=== PATIENT | female | born 1995 | race Caucasian/White ===

== ENCOUNTER 2024-11-20 05:30 | Day surgery (SDC) | payer BC, SELFPAY ==
--- NOTE | 2024-11-18 07:54 | ESHP_ITS ---
RE: BI MARTINEZ : 1995 DATE OF ADMISSION: 11/20/2024 HISTORY OF PRESENT ILLNESS: This is a 29-year-old 1, now para 0-0-1-0 with retained products of conception who presents for suction, dilatation and curettage. The patient denies any bleeding, fever, or pelvic pain. ALLERGIES: NO KNOWN DRUG ALLERGIES. MEDICATIONS: Folic acid 1 mg one p.o. daily. PAST MEDICAL HISTORY: Infertility, miscarriage. PAST SURGICAL HISTORY: Denies. SOCIAL HISTORY: She denies any alcohol, drug use, or smoking. She is . OBSTETRIC HISTORY: 10/30/2024, 7 weeks spontaneous AB. FAMILY HISTORY: Diabetes, hypertension, hypothyroidism. REVIEW OF SYSTEMS: She denies any chest pain, palpitations, cough, fever, shortness of breath, or lower extremity pain. PHYSICAL EXAMINATION: VITAL SIGNS: Blood pressure is 112/72 mmHg, heart rate 88, respirations 18, temperature 98.6. HEENT: Oropharynx and sclerae are clear. LUNGS: Clear to auscultation bilaterally. HEART: Regular rate and rhythm. ABDOMEN: Nontender. No scars noted. EXTREMITIES: Nontender. SKIN: No gross rashes or lesion. NEUROLOGIC: No focal deficit. ASSESSMENT: Retained products of conception. PLAN: Suction, dilatation and curettage. Informed consent was obtained. The patient was made aware of the risks, complications, alternatives, and benefits of the proposed procedure and she agrees. DT: 06:58:48 TT: 07:53:00 Ref: [id number] - TID: [id number] MTDD
[2024-11-18 13:57] VITALS: BMI 21.6
[2024-11-18 14:30] LABS: Basophils % (Auto) 1 % (0-2.5); Eosinophils # (Auto) 0.1 Thou/mm3 (0.0-0.5); Eosinophils % (Auto) 2 % (0-10); Hematocrit 37.1 % (36.0-46.0); Hemoglobin 12.7 g/dL (12.0-16.0); Immature Granulocytes % (Auto) 0 % (0-0); Immature Granulocytes Auto 0.01 Thou/mm3 (0.00-0.00); Lymphocytes # (Auto) 1.5 Thou/mm3 (1.0-4.8); Lymphocytes % (Auto) 25 % (10-50); Mean Corpuscular HGB Conc 34.2 g/dl (31.0-37.0); Mean Corpuscular Hemoglobin 32.2 pg (25.0-35.0); Mean Corpuscular Volume 94 fL (80-100); Monocytes # (Auto) 0.4 Thou/mm3 (0.0-0.8); Monocytes % (Auto) 6 % (0-12); Neutrophils # (Auto) 4.2 Thou/mm3 (1.8-7.7); Neutrophils % (Auto) 67 % (37-80); Nucleated Red Blood Cell % 0 /100 WBC (0); Platelet Count 218 Thou/mm3 (140-440); RDW Standard Deviation 43.8 fL (36.4-46.3); Red Blood Count 3.94 Miln/mm3 (4.00-5.20); White Blood Count 6.2 Thou/mm3 (3.6-11.0)
[2024-11-18 14:44] LABS: Alanine Aminotransferase 11 U/L (10-49); Albumin, Serum 4.2 gm/dL (3.5-5.0); Albumin/Globulin Ratio 1.6 (1.2-2.2); Alkaline Phosphatase 44 U/L (46-116); Anion Gap 5 (7-16); Aspartate Amino Transferase 14 U/L (0-34); BUN/Creatinine Ratio 8 Ratio (12-20); Beta HCG,Quantitative < 1 mIU/mL (<5.0); Blood Urea Nitrogen 7 mg/dL (9-23); Calcium 8.8 mg/dL (8.3-10.6); Calcium (Corrected) 8.8 mg/dL (8.5-10.1); Carbon Dioxide 28.4 mMol/L (20.0-31.0); Chloride 107 mMol/L (98-107); Creatinine (Component) 0.9 mg/dL (0.6-1.3); Estimated Creatinine Clearance 82.2 mL/min (>60); Globulin 2.6 gm/dL (2.3-3.5); Glucose 118 mg/dL (74-106); Osmolality,Calculated 278 (275-295); Potassium 3.9 mMol/L (3.4-5.1); Sodium 140 mMol/L (136-145); Total Protein 6.8 gm/dL (5.7-8.2); eGFR > 60 See Note
[2024-11-18 15:17] LABS: INR 1.1 (0.9-1.3); Partial Thromboplastin Time 29.6 Seconds (22.0-36.0); Prothrombin Time 11.5 Seconds (9.0-12.2)
[2024-11-20] VITALS (7 sets, daily range): BP systolic 107–118; BP diastolic 68–77; PULSE 64–80; RESP 12–20; TEMP 36.3–36.4; O2SAT 100; BMI 20.6
[2024-11-20] MEDS: RINGERS LACTATED 1000 ML 1,000 ML 30 ML IV (06:45)
--- NOTE | 2024-11-20 08:24 | SUR.PHASEI ---
pt received from OR in recovery bay 5. pt obtunded, breathing unlabored on oxymask 6l, oral airway in place. v/s stable. pt dressing peripad cdi. report received from Magui PIERRE and Dr. Bingham.
--- NOTE | 2024-11-20 08:38 | SUR.PHASEI ---
pt able to tolerate oral fluids without difficulty swallowing or nasuea/vomiting.
[2024-11-20] MEDS: ONDANSETRON INJ 2 MG/ML INJ 2 ML 4 MG IV (09:14)
--- NOTE | 2024-11-20 10:21 | ESOP_ITS ---
RE: BI MARTINEZ : 1995 DATE OF OPERATION: 11/20/2024 PREOPERATIVE DIAGNOSIS: Retained products of conception. POSTOPERATIVE DIAGNOSIS: Retained products of conception. PROCEDURE PERFORMED: Suction, dilatation and curettage. SURGEON: Ha Madrid DO PASTORAL COUNSELOR: None. ANESTHESIA: General. ANESTHESIOLOGIST: Dr. Bingham. ESTIMATED BLOOD LOSS: 10 mL. COMPLICATIONS: None. COUNTS: Correct. PATHOLOGY: Products of conception. FINDINGS: A 6-week size uterus. Cervix, long and closed. Small amount of products of conception in the uterine cavity. DESCRIPTION OF PROCEDURE: After proper informed consent was obtained, the patient was made aware of the risks, complications, alternatives, and benefits of the proposed procedure. She was taken to the operating room. She underwent induction of general anesthesia. She was placed in the dorsal lithotomy position. She was prepped and draped in the usual sterile fashion. A timeout was performed. A bivalve speculum was placed in the vagina. A single-tooth tenaculum was used to grasp the anterior lip of the cervix. The cervix was dilated to accommodate the 8 mm suction curette and the uterine cavity was curetted in all 4 quadrants and specimen sent to pathology. Hemostasis was achieved at the site of the tenaculum on the anterior lip of the cervix by using Bovie cautery and 2-0 chromic catgut suture. There was no bleeding at the end of the procedure. All instruments were removed from the vagina. She was reversed from general anesthesia in the supine position and transferred to the recovery room in stable condition. She tolerated the procedure well. Counts were correct. Her blood type is O positive. DT: 09::22 TT: 10:20:00 Ref: [id number] - TID: [id number]
== END 2024-11-20 09:24 | disposition home or self-care (01) ==
PROVIDERS: PCP Family Medicine; Referring Provider Specialist; Visit Provider Specialist
PROC: (CPT 58120; principal; 2024-11-20 07:30)
DX: O02.89 Other abnormal products of conception (principal)
CPT/HCPCS: 59812; 36415; 80053; 84702; 85025; 85610; 85730; 86850; 86900; 86901; A4217; J0690; J2250; J2405; J2704; J3010; J7120